=== PATIENT | female | born 1960 | race Caucasian/White ===

== ENCOUNTER 2018-07-08 13:33 | Observation (INO) | payer BC | END 2018-07-09 12:21 | disposition home or self-care (01) | LOC: D.ER 13:33 → D.M2 16:22 | PROVIDERS: ADMIT Family Medicine | DX: R07.89 Other chest pain (principal); F41.0 Panic disorder [episodic paroxysmal anxiety]; E78.5 Hyperlipidemia, unspecified; E03.9 Hypothyroidism, unspecified ==